=== PATIENT | male | born 1980 | race Caucasian/White ===

== ENCOUNTER 2023-06-03 08:28 | Emergency (ER) | payer SELFPAY ==
[2023-06-03] MEDS ORDERED: Ibuprofen 800 MG TAB ONE (08:54)
== END 2023-06-03 09:38 | disposition home or self-care (01) ==
LOC: MADERS 08:28
DX: S93.401A Sprain of unspecified ligament of right ankle, initial encounter (principal); F17.200 Nicotine dependence, unspecified, uncomplicated; X50.1XXA Overexertion from prolonged static or awkward postures, initial encounter